=== PATIENT | male | born 1995 | race Caucasian/White ===

== ENCOUNTER 2016-12-23 17:59 | Emergency (ER) | payer SELFPAY ==
[~2016-12-23] VITALS: Ht 177.8 cm; Wt 60.0 kg
[2016-12-23] MEDS ORDERED: KETOROLAC 30MG/ML VIAL IM ONE (22:45)
[2016-12-23] MEDS ORDERED: ONDANSETRON 4MG ODT PO ONE (22:45)
[2016-12-23] MEDS ORDERED: ONDANSETRON 4MG ODT PO SCH (22:51)
[2016-12-23] MEDS ORDERED: KETOROLAC 30MG/ML VIAL IM SCH (22:51)
[2016-12-24 00:10] VITALS: BP 105/60
== END 2016-12-24 00:15 | disposition home or self-care (01) ==
LOC: ER 19:38
DX: S13.4XXA Sprain of ligaments of cervical spine, initial encounter (principal); S09.90XA Unspecified injury of head, initial encounter; F12.10 Cannabis abuse, uncomplicated; V49.9XXA Car occupant (driver) (passenger) injured in unspecified traffic accident, initial encounter; Y93.89 Activity, other specified; Y99.8 Other external cause status; Y92.410 Unspecified street and highway as the place of occurrence of the external cause
CPT/HCPCS: 72040; 96372; 99284; J1885; Q0162